=== PATIENT | male | born 1935 | race Caucasian/White ===

== ENCOUNTER 2017-03-11 16:14 | Observation (INO) | payer MEDICARE ==
[2017-03-11 16:23] VITALS: RESP 18
--- NOTE | 2017-03-11 17:13 | ED ---
General Adult HPI - General Chief complaint: Recheck/Abnormal Lab/Rx Stated complaint: Hypertension Time Seen by Provider: 03/11/17 16:53 Source: patient, RN notes reviewed, old records reviewed Mode of arrival: ambulatory Limitations: no limitations - History of Present Illness Initial comments: This is a 1-year-old male the ER for evaluation of possible elevated blood pressure but chest pain that woke him up at night. Patient left arm pain about 3 AM this morning waking him from sleep. Patient became anxious that something might be going with his heart entities blood pressure noted to be elevated. Patient had no shortness of breath or sweating at the time. Pain is persisted. Patient does have A. fib history of high blood pressure is on anticoagulation and Cardizem. At this time patient started complaining of left shoulder pain. He took 2 Aleve throughout the day with no resolution of his pain. No fevers cough or congestion, no travel history or recent hospital admissions - Related Data Home Medications Medication Instructions Recorded Confirmed Diltiazem HCl [Cardizem] 240 mg PO HS 04/03/15 03/11/17 Doxazosin Mesylate [Cardura] 8 mg PO DAILY 04/03/15 03/11/17 Apixaban [Eliquis] 5 mg PO BID 03/11/17 03/11/17 Arnica Gel 1 applic TOPICAL DAILY PRN 03/11/17 03/11/17 Ascorbic Acid [Vitamin C] 500 mg PO DAILY 03/11/17 03/11/17 Calcium 400mg W/Vitamin D 267mg 1 tab PO DAILY 03/11/17 03/11/17 W/Magnesium 200mg Cholecalciferol [Vitamin D3] 400 unit PO DAILY 03/11/17 03/11/17 Cod Liver 415mg W/ Vitamin A 7250 1 tab PO DAILY 03/11/17 03/11/17 W/Vitamin D 135mg Glucosamine HCl/Chondr Nowak A Na 1 tab PO BID 03/11/17 03/11/17 [Osteo Bi-Flex Caplet] Magnesium Oxide 400 mg PO DAILY 03/11/17 03/11/17 Multivitamins, Thera [Multivitamin 1 tab PO DAILY 03/11/17 03/11/17 (formulary)] Vitamin B6 W/ Vitamin B12 1 tab PO DAILY 03/11/17 03/11/17 Zinc Gluconate [Zinc] 25 mg PO DAILY 03/11/17 03/11/17 Allergies Allergy/AdvReac Type Severity Reaction Status Date / Time Penicillins Allergy Swelling Verified 03/11/17 17:21 Review of Systems ROS Statement: Those systems with pertinent positive or pertinent negative responses have been documented in the HPI. ROS Other: All systems not noted in ROS Statement are negative. Past Medical History Past Medical History: Atrial Fibrillation, Hypertension History of Any Multi-Drug Resistant Organisms: None Reported Past Surgical History: Cholecystectomy, Hernia Repair Additional Past Surgical History / Comment(s): spinal surgery, rt knee Past Psychological History: No Psychological Hx Reported Smoking Status: Never smoker Past Alcohol Use History: None Reported Past Drug Use History: None Reported General Exam Limitations: no limitations General appearance: alert, in no apparent distress Head exam: Present: atraumatic, normocephalic, normal inspection Eye exam: Present: normal appearance, PERRL, EOMI. Absent: scleral icterus, conjunctival injection, periorbital swelling ENT exam: Present: normal exam, mucous membranes moist Neck exam: Present: normal inspection. Absent: tenderness, meningismus, lymphadenopathy Respiratory exam: Present: normal lung sounds bilaterally. Absent: respiratory distress, wheezes, rales, rhonchi, stridor Cardiovascular Exam: Present: regular rate, normal rhythm, normal heart sounds. Absent: systolic murmur, diastolic murmur, rubs, gallop, clicks GI/Abdominal exam: Present: soft, normal bowel sounds. Absent: distended, tenderness, guarding, rebound, rigid Extremities exam: Present: normal inspection, full ROM, normal capillary refill. Absent: tenderness, pedal edema, joint swelling, calf tenderness Back exam: Present: normal inspection Neurological exam: Present: alert, oriented X3, CN II-XII intact Psychiatric exam: Present: normal affect, normal mood Skin exam: Present: warm, dry, intact, normal color. Absent: rash Course Vital Signs 03/11/17 03/11/17 16:21 16:57 Temperature 98.0 F Pulse Rate 93 Respiratory 18 Rate Blood Pressure 143/118 168/74 O2 Sat by Pulse 98 Oximetry - Reevaluation(s) Reevaluation #1: 03/11/17 17:58 Patient still complaining of pain in his left arm pain in his chest EKG Findings - EKG Comments: EKG Findings:: EKG shows normal sinus rhythm rate of 66, IN 166, QRS 74, QTC 421 Medical Decision Making - Medical Decision Making A female the ER with nonspecific chest pain, patient does have chest pain and cardiac concern, with left arm pain. Patient has history of A. fib and high blood pressure, patient is on anticoagulation so no need to anticoagulate, patient will be admitted for cardiac observation - Lab Data Result diagrams: 03/11/17 17:20 03/11/17 17:20 Lab Results 03/11/17 03/11/17 03/11/17 Range/Units 17:20 17:20 17:20 WBC 3.8 (3.8-10.6) k/uL RBC 4.83 (4.30-5.90) m/uL Hgb 15.5 (13.0-17.5) gm/dL Hct 45.3 (39.0-53.0) % MCV 93.6 (80.0-100.0) fL MCH 32.1 (25.0-35.0) pg MCHC 34.3 (31.0-37.0) g/dL RDW 12.8 (11.5-15.5) % Plt Count 152 (150-450) k/uL Neutrophils % 60 % Lymphocytes % 28 % Monocytes % 7 % Eosinophils % 2 % Basophils % 1 % Neutrophils # 2.3 (1.3-7.7) k/uL Lymphocytes # 1.1 (1.0-4.8) k/uL Monocytes # 0.3 (0-1.0) k/uL Eosinophils # 0.1 (0-0.7) k/uL Basophils # 0.0 (0-0.2) k/uL PT 10.4 (9.0-12.0) sec INR 1.0 (<1.1) APTT 27.2 (22.0-30.0) sec Sodium 141 (137-145) mmol/L Potassium 4.0 (3.5-5.1) mmol/L Chloride 108 H (98-107) mmol/L Carbon Dioxide 27 (22-30) mmol/L Anion Gap 6 mmol/L BUN 13 (9-20) mg/dL Creatinine 0.90 (0.66-1.25) mg/dL Est GFR (MDRD) Af Amer >60 (>60 ml/min/1.73 sqM) Est GFR (MDRD) Non-Af >60 (>60 ml/min/1.73 sqM) Glucose 90 (74-99) mg/dL Calcium 9.7 (8.4-10.2) mg/dL Magnesium 2.0 (1.6-2.3) mg/dL Total Bilirubin 0.5 (0.2-1.3) mg/dL AST 31 (17-59) U/L ALT 35 (21-72) U/L Alkaline Phosphatase 56 (38-126) U/L Total Protein 7.3 (6.3-8.2) g/dL Albumin 4.2 (3.5-5.0) g/dL Lipase 146 (23-300) U/L - Radiology Data Radiology results: report reviewed (Chest x-ray is negative for acute disease), image reviewed Critical Care Time Critical Care Time: Yes Total Critical Care Time: 31 Disposition Clinical Impression: Hypertension, Chest pain Disposition: ADMITTED IP TO THIS [facility] Condition: Undetermined Referrals: Chris Desir MD [Primary Care Provider] - 1-2 days
[2017-03-11 17:37] LABS: Basophils % (A) 1 %; CH 32.6; Eosinophils # (A) 0.1 k/uL (0-0.7); Eosinophils % (A) 2 %; HCT 45.3 % (39.0-53.0); HDW 2.66; HGB 15.5 gm/dL (13.0-17.5); Luc # (Auto) 0.09; Luc % (Auto) 2; Lymphocytes # (A) 1.1 k/uL (1.0-4.8); Lymphocytes % (A) 28 %; MCH 32.1 pg (25.0-35.0); MCHC 34.3 g/dL (31.0-37.0); MCV 93.6 fL (80.0-100.0); Mean Platelet Volume 6.7; Monocytes # (A) 0.3 k/uL (0-1.0); Monocytes % (A) 7 %; Neutrophils # (A) 2.3 k/uL (1.3-7.7); Neutrophils % (A) 60 %; RBC 4.83 m/uL (4.30-5.90); RDW 12.8 % (11.5-15.5); WBC 3.8 k/uL (3.8-10.6)
--- NOTE | 2017-03-11 17:44 | XR ---
EXAMINATION TYPE: XR chest 2V DATE OF EXAM: 03/11/2017 5:30 PM COMPARISON: NONE HISTORY: Hypertension TECHNIQUE: Frontal and lateral views of the chest are obtained. FINDINGS: Heart is normal. Lungs are clear of consolidation. There are no hilar masses. There are ch est leads. Costophrenic angles are clear. There is spurring in the thoracic spine. IMPRESSION: No active cardiopulmonary disease.
[2017-03-11 17:45] LABS: ALT 35 U/L (21-72); AST 31 U/L (17-59); Alkaline Phosphatase 56 U/L (38-126); Anion Gap 6 mmol/L; Blood Urea Nitrogen 13 mg/dL (9-20); Calcium 9.7 mg/dL (8.4-10.2); Carbon Dioxide 27 mmol/L (22-30); Chloride 108 mmol/L (98-107); Glucose 90 mg/dL (74-99); Non-African American GFR(MDRD) >60 (>60 ml/min/1.73 sqM); Partial Thromboplastin Time 27.2 sec (22.0-30.0); Prothrombin Time 10.4 sec (9.0-12.0); Sodium 141 mmol/L (137-145); Total Bilirubin 0.5 mg/dL (0.2-1.3); Total Protein 7.3 g/dL (6.3-8.2)
[2017-03-11] MEDS ORDERED: MORPHINE SULFATE 4 MG/ML SYRINGE IV PRN (17:56)
[2017-03-11] MEDS ORDERED: ASPIRIN 81 MG CHEW PO STA (17:56)
[2017-03-11] MEDS ORDERED: NITROGLYCERIN SL TABS 0.4 MG TAB SUBLINGUAL PRN (17:56)
[2017-03-11 17:58] LABS: Creatine Kinase 353 U/L (55-170)
[2017-03-11] MEDS ORDERED: SODIUM CHLORIDE 0.9% 1,000 ML IV SCH (18:00)
[2017-03-11 18:11] LABS: Troponin I <0.012 ng/mL (0.000-0.034)
[2017-03-11 18:13] LABS: Creatine Kinase MB 10.2 ng/mL (0.0-2.4)
[2017-03-11] MEDS ORDERED: ARNICA TOPICAL PRN (19:45)
[2017-03-11] MEDS: APIXABAN 5 MG TAB PO SCH (20:13)
[2017-03-11 20:32] VITALS: BMI 26.2
[2017-03-11] MEDS ORDERED: DILTIAZEM CD 240 MG CAP.ER.24H PO SCH (21:00)
[2017-03-11] MEDS ORDERED: NON-FORMULARY DRUG (Glucosamine Hcl/Chondr Su A Na [Osteo Bi-Flex Caplet] 1 TAB) PO SCH (21:00)
[2017-03-11] MEDS: METOPROLOL TARTRATE 12.5 MG TAB PO SCH (21:14)
[2017-03-11 23:34] LABS: Creatine Kinase 275 U/L (55-170)
[2017-03-11 23:45] LABS: Troponin I <0.012 ng/mL (0.000-0.034)
[2017-03-12 00:04] LABS: Creatine Kinase MB 6.9 ng/mL (0.0-2.4)
[2017-03-12 06:17] LABS: Basophils % (A) 1 %; CH 32.5; CHCM 33.3; Eosinophils # (A) 0.2 k/uL (0-0.7); Eosinophils % (A) 3 %; HCT 43.8 % (39.0-53.0); HDW 2.43; Luc # (Auto) 0.17; Luc % (Auto) 4; Lymphocytes # (A) 1.3 k/uL (1.0-4.8); Lymphocytes % (A) 27 %; MCH 31.4 pg (25.0-35.0); Mean Platelet Volume 6.9; Monocytes # (A) 0.4 k/uL (0-1.0); Monocytes % (A) 9 %; Neutrophils # (A) 2.8 k/uL (1.3-7.7); Neutrophils % (A) 57 %; RBC 4.47 m/uL (4.30-5.90); WBC 4.9 k/uL (3.8-10.6); WBC (Perox) 5.07
[2017-03-12 06:35] LABS: Anion Gap 6 mmol/L; Blood Urea Nitrogen 12 mg/dL (9-20); Calcium 9.3 mg/dL (8.4-10.2); Carbon Dioxide 26 mmol/L (22-30); Chloride 112 mmol/L (98-107); Cholesterol 172 mg/dL (<200); Glucose 84 mg/dL (74-99); HDL Cholesterol 55 mg/dL (40-60); Non-African American GFR(MDRD) >60 (>60 ml/min/1.73 sqM); Potassium 4.1 mmol/L (3.5-5.1); Sodium 144 mmol/L (137-145); Triglycerides 60 mg/dL (<150)
[2017-03-12 06:46] LABS: Creatine Kinase 197 U/L (55-170)
[2017-03-12 06:58] LABS: Troponin I <0.012 ng/mL (0.000-0.034)
[2017-03-12 07:13] LABS: Creatine Kinase MB 5.1 ng/mL (0.0-2.4)
[2017-03-12] MEDS ORDERED: CHOLECALCIFEROL 400 UNIT TAB PO SCH (09:00)
[2017-03-12] MEDS ORDERED: VITAMIN B6 PO SCH (09:00)
[2017-03-12] MEDS ORDERED: ZINC GLUCONATE 25 MG PO SCH (09:00)
[2017-03-12] MEDS ORDERED: COD LIVER PO SCH (09:00)
[2017-03-12] MEDS ORDERED: ASPIRIN 325 MG TAB PO SCH (09:00)
[2017-03-12] MEDS ORDERED: MAGNESIUM OXIDE 400 MG TAB PO SCH (09:00)
[2017-03-12] MEDS ORDERED: VITAMIN B12 PO SCH (09:00)
[2017-03-12] MEDS ORDERED: MULTIVITAMINS, THERA 1 EACH TAB PO SCH (09:00)
[2017-03-12] MEDS ORDERED: ASCORBIC ACID 500 MG TAB PO SCH (09:00)
[2017-03-12] MEDS ORDERED: VITAMIN A PO SCH (09:00)
[2017-03-12] MEDS ORDERED: VITAMIN D PO SCH (09:00)
[2017-03-12] MEDS ORDERED: DOXAZOSIN 4 MG TAB PO SCH (09:00)
[2017-03-12] MEDS ORDERED: CALCIUM CARB-VIT D 500MG-200UN 1 EACH TAB PO SCH (09:00)
[2017-03-12] MEDS: APIXABAN 5 MG TAB PO SCH (09:01)
[2017-03-12] MEDS: METOPROLOL TARTRATE 12.5 MG TAB PO SCH (09:01)
--- NOTE | 2017-03-12 09:41 | HP ---
DATE OF ADMISSION: CHIEF COMPLAINT: Chest pain. HISTORY OF PRESENT ILLNESS: This 81-year-old gentleman with past medical history of atrial fibrillation, hypertension, history of cholecystectomy, history of spinal surgery being followed by Dr. Celaya in the outpatient setting was admitted with arm pain and chest pain to [facility]. Initially the pain started in the arm about 3:00 and the patient also had some itching of the left side of the chest and blood pressure was found to be high. The patient has history of atrial fibrillation and the patient took 2 Aleve and because of lack of improvement, the patient came to [facility] and admitted for further evaluation and treatment. Initial troponins are negative. The patient was found to be hypertensive with a blood pressure 143/118, and the EKG present on admission showed normal sinus rhythm. No acute changes. There is no history of fever, rigors. No history of headache, loss of consciousness, seizures. PAST MEDICAL HISTORY: Atrial fibrillation, hypertension, history of hernia surgery, cholecystectomy. MEDICATIONS: 1. Calcium 1 p.o. daily. 2. Magnesium oxide 400 daily. 3. Glucosamine b.i.d. 4. Cod liver oil daily. 5. Zinc oxide 25 mg daily. 6. Arnica gel one application daily p.r.n. 7. Multivitamin 1 p.o. daily. 8. Vitamin D3 400 units daily. 9. Vitamin B6. 10. Vitamin B, 1 tablet. 11. Vitamin C 500 mg p.o. daily. 12. Cardura 8 mg p.o. daily. 13. Cardizem 240 mg daily. 14. Eliquis 5 mg p.o. b.i.d. ALLERGIES: PENICILLIN. FAMILY HISTORY: No history of heart disease or strokes in the family. SOCIAL HISTORY: No history of smoking, no history of alcohol intake. REVIEW OF SYSTEMS: ENT: No diminishing hearing or diminished vision. CARDIOVASCULAR: No angina or palpitations. RESPIRATORY: As mentioned earlier. GI: No nausea. : No dysuria. NERVOUS SYSTEM: No numbness or weakness. ALLERGY/IMMUNOLOGY: No history of asthma. MUSCULOSKELETAL: As mentioned earlier. HEMATOLOGY: No history of anemia. ENDOCRINE: No history of diabetes. CONSTITUTIONAL: As mentioned earlier. DERMATOLOGY: Negative. RHEUMATOLOGY: Negative. PSYCHIATRY: As mentioned earlier. PHYSICAL EXAMINATION: Alert and oriented x3. Pulse 79, blood pressure 158/68, respirations 18, temperature 97.2, pulse ox 97% on room air. HEENT: Conjunctivae normal. Oral mucosa moist. NECK: No jugular venous distention. No carotid bruit. No lymph node enlargement. CARDIOVASCULAR: S1 and S2, muffled. RESPIRATORY: Breath sounds diminished at the bases. No rhonchi, no crackles. ABDOMEN: Soft, nontender. No mass palpable. LEGS: No edema, no swelling. NERVOUS SYSTEM: Higher function as mentioned. Moves all four limbs. No focal motor deficits. LYMPHATIC: No lymphadenopathy in the neck, axillae or groin. SKIN: No ulcer, rash or bleeding. LABS: CBC and BMP noted. Otherwise, CK is 353. Troponins are negative. ASSESSMENT: 1. Chest pain, possible unstable angina. 2. Elevated CK and CK-MB with normal troponins. 3. Labile hypertension. 4. History of atrial fibrillation. 5. Hypertension. 6. Cholecystectomy. 7. Hernia surgery. 8. Degenerative joint disease. 9. Left knee replacement. 10. FULL CODE. RECOMMENDATIONS AND DISCUSSION: In this 81-year-old gentleman who presented with multiple complex medical issues, we will monitor the patient closely. Continue the current medications, continue symptomatic treatment. Resume the home medications. Closely follow with Cardiology. Rule out myocardial infarction. Adjust blood pressure medications. Otherwise, I would add beta blockers, too the current regimen. Continue to monitor. Further recommendations to follow.
--- NOTE | 2017-03-12 13:54 | P.CRDCN ---
History of Present Illness Consult date: 03/12/17 Reason for Consult (text): Chest Pain Chief complaint: high blood pressure, left arm pain History of present illness: This is a pleasant 81-year-old gentleman with a history of atrial fibrillation and hypertension, on Cardura, Cardizem and Eliquis. He follows with a software configuration analyst out of [place]. He apparently had a stress test in September that was negative per the patient and . Presented to the emergency department after waking in the middle the night with left arm pain and elevated blood pressure. He is unsure if the pain may have been related to straining as he was doing some heavy lifting a couple days ago. Also been eating ham quite a bit since which she usually does not eat. EKG on admission sodium normal sinus rhythm without any acute ST-T wave abnormalities. Laboratory values showed BUN 12, creatinine 0.83 and troponins less than 0.0123. Chest x- ray showed no acute cardiopulmonary process. Since arrival to the unit, patient has been pain-free. He has had no complaints of palpitations, shortness of breath, pain in his chest, dizziness, lightheadedness, syncope or edema. Past Medical History Past Medical History: Atrial Fibrillation, Hypertension History of Any Multi-Drug Resistant Organisms: None Reported Past Surgical History: Cholecystectomy, Hernia Repair Additional Past Surgical History / Comment(s): spinal surgery, rt knee replacement Past Anesthesia/Blood Transfusion Reactions: No Reported Reaction Past Psychological History: No Psychological Hx Reported Smoking Status: Never smoker Past Alcohol Use History: None Reported Past Drug Use History: None Reported - Past Family History Mother History Unknown: Yes Medications and Allergies Home Medications Medication Instructions Recorded Confirmed Type Diltiazem HCl [Cardizem] 240 mg PO HS 04/03/15 03/11/17 History Doxazosin Mesylate [Cardura] 8 mg PO DAILY 04/03/15 03/11/17 History Apixaban [Eliquis] 5 mg PO BID 03/11/17 03/11/17 History Arnica Gel 1 applic TOPICAL DAILY PRN 03/11/17 03/11/17 History Ascorbic Acid [Vitamin C] 500 mg PO DAILY 03/11/17 03/11/17 History Calcium 400mg W/Vitamin D 267mg 1 tab PO DAILY 03/11/17 03/11/17 History W/Magnesium 200mg Cholecalciferol [Vitamin D3] 400 unit PO DAILY 03/11/17 03/11/17 History Cod Liver 415mg W/ Vitamin A 7250 1 tab PO DAILY 03/11/17 03/11/17 History W/Vitamin D 135mg Glucosamine HCl/Chondr Nowak A Na 1 tab PO BID 03/11/17 03/11/17 History [Osteo Bi-Flex Caplet] Magnesium Oxide 400 mg PO DAILY 03/11/17 03/11/17 History Multivitamins, Thera [Multivitamin 1 tab PO DAILY 03/11/17 03/11/17 History (formulary)] Vitamin B6 W/ Vitamin B12 1 tab PO DAILY 03/11/17 03/11/17 History Zinc Gluconate [Zinc] 25 mg PO DAILY 03/11/17 03/11/17 History Allergies Allergy/AdvReac Type Severity Reaction Status Date / Time Penicillins Allergy Swelling Verified 03/11/17 17:21 Physical Exam Vitals: Vital Signs Temp Pulse Pulse Resp BP BP Pulse Ox 03/12/17 08:00 97.1 F L 72 18 156/96 96 03/12/17 04:00 65 18 140/68 97 03/12/17 00:00 72 18 134/71 98 03/11/17 20:00 97.2 F L 79 18 158/68 97 03/11/17 19:29 97.2 F L 79 18 158/68 97 03/11/17 18:56 98.7 F 74 18 167/78 95 Intake and Output 03/11/17 03/12/17 03/12/17 22:59 06:59 14:59 Intake Total 20 160 416 Balance 20 160 416 Intake: Intake, IV Titration 20 160 Amount Sodium Chloride 0.9% 1, 20 160 000 ml @ 20 mls/hr IV . Q24H [facility] Rx#:[id number] Oral 416 Other: # Voids 2 Weight 87.54 kg 87.3 kg PHYSICAL EXAMINATION: HEENT: Head is atraumatic, normocephalic. Pupils equal, round. Neck is supple. There is no elevated jugular venous pressure. HEART EXAMINATION: Heart sounds regular, S1 and S2 normal. No murmur or gallop heard. CHEST EXAMINATION: Lungs are clear to auscultation and precussion. No chest wall tenderness is noted on palpation or with deep breathing. ABDOMEN: Soft, nontender. Bowel sounds are heard. No organomegaly noted. EXTREMITIES: 2+ peripheral pulses with no evidence of peripheral edema and no calf tenderness noted. NEUROLOGIC patient is awake, alert and oriented x3. . Results 03/12/17 05:18 03/12/17 05:18 Cardiac Enzymes 03/11/17 03/12/17 Range/Units 22:27 05:18 CK-MB (CK-2) 6.9 H* 5.1 H* (0.0-2.4) ng/mL Troponin I <0.012 <0.012 (0.000-0.034) ng/mL Lipids 03/12/17 Range/Units 05:18 Triglycerides 60 (<150) mg/dL Cholesterol 172 (<200) mg/dL HDL Cholesterol 55 (40-60) mg/dL CBC 03/12/17 Range/Units 05:18 WBC 4.9 (3.8-10.6) k/uL RBC 4.47 (4.30-5.90) m/uL Hgb 14.0 (13.0-17.5) gm/dL Hct 43.8 (39.0-53.0) % Plt Count 155 (150-450) k/uL Comprehensive Metabolic Panel 03/12/17 Range/Units 05:18 Sodium 144 (137-145) mmol/L Potassium 4.1 (3.5-5.1) mmol/L Chloride 112 H (98-107) mmol/L Carbon Dioxide 26 (22-30) mmol/L BUN 12 (9-20) mg/dL Creatinine 0.83 (0.66-1.25) mg/dL Glucose 84 (74-99) mg/dL Calcium 9.3 (8.4-10.2) mg/dL Current Medications Generic Name Dose Route Start Last Admin Trade Name Freq PRN Reason Stop Dose Admin Apixaban 5 mg 03/11/17 21:00 03/12/17 09:01 Eliquis PO 5 mg BID [facility] Administration Ascorbic Acid 500 mg 03/12/17 09:00 03/12/17 09:01 Vitamin C PO 500 mg DAILY [facility] Administration Aspirin 325 mg 03/12/17 09:00 Aspirin PO DAILY [facility] Calcium Carbonate 1 each 03/12/17 09:00 03/12/17 09:01 Oscal 500+D PO 1 each DAILY [facility] Administration Cholecalciferol 400 unit 03/12/17 09:00 03/12/17 09:01 Vitamin D3 PO 400 unit DAILY [facility] Administration Diltiazem HCl 240 mg 03/11/17 21:00 03/11/17 20:13 Cardizem Cd PO 240 mg HS [facility] Administration Doxazosin Mesylate 8 mg 03/12/17 09:00 03/12/17 09:01 Cardura PO 8 mg DAILY [facility] Administration Sodium Chloride 1,000 mls @ 20 mls/hr 03/11/17 18:00 03/11/17 18:08 Saline 0.9% IV 20 mls/hr .Q24H [facility] Administration Magnesium Oxide 400 mg 03/12/17 09:00 03/12/17 09:01 Mag-Ox PO 400 mg DAILY [facility] Administration Metoprolol Tartrate 12.5 mg 03/11/17 21:00 03/12/17 09:01 Lopressor PO 12.5 mg BID [facility] Administration Morphine Sulfate 4 mg 03/11/17 17:56 Morphine Sulfate (Inj) IV Q4HR PRN Chest Pain Multivitamins 1 each 03/12/17 09:00 03/12/17 09:01 Theragran PO 1 each DAILY [facility] Administration Nitroglycerin 0.4 mg 03/11/17 17:56 Nitrostat SUBLINGUAL Q5M PRN Chest Pain Intake and Output 03/11/17 03/12/17 03/12/17 22:59 06:59 14:59 Intake Total 20 160 416 Balance 20 160 416 Intake: Intake, IV Titration 20 160 Amount Sodium Chloride 0.9% 1, 20 160 000 ml @ 20 mls/hr IV . Q24H [facility] Rx#:[id number] Oral 416 Other: # Voids 2 Weight 87.54 kg 87.3 kg 03/12/17 05:18 03/12/17 05:18 EKG Interpretations (text) Normal sinus rhythm Assessment and Plan Plan: Assessment and plan #1 hypertension #2 history of paroxysmal atrial fibrillation #3 left arm pain 4 hyperlipidemia Vp Integrity perspective, we'll obtain a 2-D echo. Per the patient and his , he did have a negative stress test in September. From our standpoint patient may be discharged home today and follow-up as an outpatient either with his usual software configuration analyst or with Dr. Steele in our office. Continue Lipitor 10 mg by mouth daily at bedtime and metoprolol, continue Cardizem and Eliquis. LITERARY WRITER note has been reviewed, I agree with a documented findings and plan of care. Patient was seen and examined.
[2017-03-12 14:25] VITALS: BP 139/67; PULSE 65; TEMP 96.9
--- NOTE | 2017-03-12 16:04 | ECHOF ---
Referral Reason:chest pain MEASUREMENTS -------- HEIGHT: 182.9 cm WEIGHT: 87.1 kg BP: 169/80 RVIDd: 2.5 cm (< 3.3) IVSd: 0.9 cm (0.6 - 1.1) LVIDd: 4.8 cm (3.9 - 5.3) LVPWd: 0.9 cm (0.6 - 1.1) IVSs: 1.5 cm LVIDs: 3.2 cm LVPWs: 1.2 cm LA Diam: 3.3 cm (2.7 - 3.8) LAESV Index (A-L): 30.07 ml/m Ao Diam: 3.1 cm (2.0 - 3.7) AV Cusp: 2.1 cm (1.5 - 2.6) LA Diam: 3.7 cm (2.7 - 3.8) MV EXCURSION: 20.477 mm (> 18.000) MV EF SLOPE: 107 mm/s (70 - 150) EPSS: 0.3 cm MV E Neo: 0.93 m/s MV DecT: 172 ms MV A Neo: 0.91 m/s MV E/A Ratio: 1.03 RAP: 5.00 mmHg RVSP: 31.23 mmHg FINDINGS -------- Sinus rhythm. This was a technically good study. LV size, wall thickness and systolic function are normal, with an EF greater than 55%. The right ventricle is normal in size. The left atrial size is normal. The right atrial size is normal. There is mild aortic valve sclerosis. There is no evidence of aortic regurgitation. Mild mitral annular calcification present. Mild mitral regurgitation is present. Mild tricuspid regurgitation present. There is no evidence of pulmonary hypertension. The right ventricular systolic pressure, as measured by Doppler, is 31.23mmHg. There is no pulmonic regurgitation present. The aortic root size is normal. There is no pericardial effusion. CONCLUSIONS -------- 1. LV size, wall thickness and systolic function are normal, with an EF greater than 55%. 2. There is no pericardial effusion. 3. There is mild aortic valve sclerosis. 4. Mild mitral annular calcification present. 5. Mild mitral regurgitation is present. 6. Mild tricuspid regurgitation present. 7. There is no evidence of pulmonary hypertension. 8. The right ventricular systolic pressure, as measured by Doppler, is 31.23mmHg. 9. There is no pulmonic regurgitation present. 10. The aortic root size is normal. GUN TESTER: Uzma Jaeger RDCS
[2017-03-12] MEDS ORDERED: ATORVASTATIN 10 MG TAB PO SCH (21:00)
--- NOTE | 2017-03-13 14:11 | DS ---
DATE OF ADMISSION: 03/11/2017 DATE OF DISCHARGE: 03/12/2017 FINAL DIAGNOSES: 1. Chest pain, possible musculoskeletal, possible unstable angina, improved. 2. Elevated CK and CK-MB with normal troponins. 3. Labile hypertension. 4. History of atrial fibrillation. 5. Hypertension, essential. 6. Cholecystectomy. 7. Hernia surgery. 8. Degenerative joint disease. 9. Left knee replacement history. 10. FULL CODE. DISCHARGE DISPOSITION: The patient will be discharged in stable condition with guarded prognosis. Cardiology cleared the patient for discharge. HISTORY OF PRESENT ILLNESS: This 81-year-old gentleman with a past medical history of multiple medical problems was admitted with complaints of left-sided arm pain and chest pain. The patient was treated symptomatic. As mentioned earlier CK was elevated but; however, the troponins are negative. Cardiology saw the patient. The patient recently had a negative stress last year in September which was apparently negative. On exam vital signs are stable. CARDIOVASCULAR SYSTEM: S1, S2 muffled. ABDOMEN: Soft. DISCHARGE DISPOSITION: The patient improved significantly. Patient be discharged in a stable condition. Diet is cardiac. Activity limited until follow-up. Follow up with Dr. Gris Salcido in one week. Follow up with [facility] in 2 weeks. Medications are: 1. Arnica gel one application topically. 2. Calcium 400 with vitamin D 1 p.o. daily. 3. Cod liver oil 1 p.o. daily. 4. Vitamin B6 1 p.o. daily. 5. Eliquis 5 mg p.o. b.i.d. 6. Vitamin C 5 mg daily. 7. Lipitor 10 mg q.h.s. 8. Vitamin D3, 400 units daily. 9. Cardizem 240 mg q.h.s. 10. Cardura 8 mg p.o. daily. 11. Glucosamine 1 tablet p.o. b.i.d. 12. Magnesium oxide 400 mg daily. 13. Lopressor 12.5 mg b.i.d. 14. Multivitamin one daily. 15. Zinc 25 mg p.o. daily. Once again, the patient is discharged in stable condition with guarded prognosis.
== END 2017-03-12 15:40 | disposition home or self-care (01) ==
LOC: EC 16:14 → 3OBS 18:11 → 6SEL 19:34
PROVIDERS: ADMIT Hospitalist; ATTEND Hospitalist
DX: R07.9 Chest pain, unspecified (principal); I10 Essential (primary) hypertension; E78.5 Hyperlipidemia, unspecified; I48.0 Paroxysmal atrial fibrillation; M19.90 Unspecified osteoarthritis, unspecified site; Z79.01 Long term (current) use of anticoagulants; Z79.899 Other long term (current) drug therapy; Z90.49 Acquired absence of other specified parts of digestive tract; M79.602 Pain in left arm; M25.512 Pain in left shoulder; Z88.0 Allergy status to penicillin; Z96.653 Presence of artificial knee joint, bilateral
CPT/HCPCS: 99285 ×2; 36415; 93005; 93306; 80061; 80053; 80048; 82550 ×2; 82553 ×2; 83690; 83735; 84484 ×2; 85025 ×2; 85610; 85730; 71020; G0378 ×2